=== PATIENT | male | born 1990 | race Caucasian/White ===

== ENCOUNTER 2021-12-19 09:10 | Emergency (ER) | payer OTHER ==
[2021-12-19 09:20] VITALS: BP 124/75; PULSE 62; RESP 18; TEMP 97.7; BMI 27.7
[2021-12-19] MEDS ORDERED: FAMOTIDINE 20 MG/50 ML IVPB 20 MG in PREMIX 50 IVPB ONE (09:29)
[2021-12-19] MEDS ORDERED: SODIUM CHLORIDE 1,000 ML IV ONE (09:30)
[2021-12-19] MEDS ORDERED: FAMOTIDINE 20 MG/50 ML IVPB 20 MG/50 ML MG IVPB ONE (09:44)
[2021-12-19 09:56] LABS: HEMATOCRIT 43.8 % (35.4-49); HEMOGLOBIN 15.9 G/dL (11.7-16.9); MCH 31.7 pg (25.7-33.7); MCHC 36.3 g/dl (32.0-35.9); MEAN CELL VOLUME 87.3 fl (80-96); MEAN PLT VOLUME 7.4 fl (7.5-11.1); PLATELET COUNT 224.4 10^3/uL (134-434); RBC 5.02 10^6/uL (4.00-5.60); RDW 13.2 % (11.9-15.9); WHITE BLOOD COUNT 5.2 10^3/uL (4.0-10.8)
[2021-12-19 10:05] LABS: ALBUMIN 4.1 g/dl (3.4-5.0); BILIRUBIN,TOTAL 0.9 mg/dl (0.2-1); CALCIUM 9.3 mg/dl (8.5-10); TOT PROT 6.8 g/dl (6.4-8.2)
[2021-12-19 10:09] LABS: PLATELET ESTIMATE ADEQUATE
== END 2021-12-19 12:42 | disposition home or self-care (01) ==
LOC: FER 09:10
PROC: 3E033GC Introduction of Other Therapeutic Substance into Peripheral Vein, Percutaneous Approach (ICD-10-PCS; principal; 2021-12-19)
DX: K80.30 Calculus of bile duct with cholangitis, unspecified, without obstruction (principal)
CPT/HCPCS: 36415; 76705-TC; 80053; 81003; 81015; 85025; 99284-25

== ENCOUNTER 2022-06-25 10:00 | Emergency (ER) | payer OTHER ==
[2022-06-25 10:12] VITALS: BP 134/90; PULSE 60; RESP 18; TEMP 98; BMI 27.7
[2022-06-25] MEDS ORDERED: IBUPROFEN 400 MG TABLET (FP) PO ONE ×2 (10:46→10:49)
== END 2022-06-25 11:30 | disposition home or self-care (01) ==
LOC: SUPCPDRO 10:00 → FER 10:00
DX: S39.011A Strain of muscle, fascia and tendon of abdomen, initial encounter (principal); X50.3XXA Overexertion from repetitive movements, initial encounter
CPT/HCPCS: 99283-25